=== PATIENT | male | born 1995 | race Two or more races ===

== ENCOUNTER 2017-05-21 13:54 | Inpatient (IN) | payer BC, MEDICAID ==
[~2017-05-21] VITALS: Ht 167.6 cm; Wt 63.5 kg
--- NOTE | 2017-05-21 14:00 | Emergency Room Report ---
History of Present Illness General Chief Complaint: Altered Mental Status Source: EMS Present Illness HPI 22-year-old male brought in by EMS with altered mental status. Per [employer],patient was lying on the sidewalk for about 20 minutes, casing mixer of started on patient was intoxicated. EMS administered a total of 8mg of Narcan, for decreased respiratory rate and pinpoint pupils, with marginal improvement, and a stating "pupils now dilated." Patient not providing history of present illness, is lying in stretcher shivering No contraband found on person no Other friends or family bedside Allergies: Coded Allergies: UNABLE TO ASSESS (Unverified , 05/21/17) Patient History Past Medical History: unable to obtain Past Surgical History: unable to obtain Pertinent Family History: unable to obtain Immunizations: UTD Reviewed Nursing Documentation: PMH: Agreed, PSxH: Agreed Review of Systems All Other Systems: limited - ams Physical Exam Vital Signs Date Time Temp Pulse Resp B/P (MAP) Pulse Ox O2 Delivery O2 Flow Rate FiO2 05/21/17 13:47 97.5 96 20 116/86 96 Room Air Sp02 EP Interpretation: reviewed, normal General Appearance: normal inspection, other - responds to verbal, pain, shivering in stretcher Head: normocephalic, atraumatic Eyes: bilateral eye PERRL, bilateral eye EOMI ENT: normal ENT inspection, normal pharynx, uvula midline, moist mucus membranes Neck: normal inspection, full range of motion, supple, thyroid normal, no meningismus, no bony tend Respiratory: normal inspection, lungs clear, normal breath sounds, no rhonchi, no respiratory distress, no retraction, no accessory muscle use, no wheezing, speaking full sentences Cardiovascular #1: regular rate, rhythm, no edema, no JVD, normal capillary refill Gastrointestinal: normal inspection, normal bowel sounds, non tender, soft, no mass, no peritonitis, non-distended, no guarding, no hernia, no pulsatile mass Genitourinary: no CVA tenderness Musculoskeletal: normal inspection, back normal, normal range of motion, no calf tenderness, pelvis stable, Vesna's Sign negative Neurologic: normal inspection, alert, responsive, plastic sheeting cutter III-XII nml as tested, motor strength/tone normal, cerebellar normal, normal gait Psychiatric: normal inspection, judgement/insight normal, mood/affect normal, no suicidal/homicidal ideation, no delusions Skin: normal inspection, normal color, no rash Lymphatic: normal inspection, no adenopathy Procedures Critical Care Time Critical Care Time CC time 35 minutes Critical care time endorsed for this patient for AMS likely from heroin overdose Critical care time includes review of laboratory tests, imaging, review of EMR, review of paperwork from SNF (if available), discussion with patient and family (if available), review of code status/POLS (if available). Critical care time also likely includes assessment of fluid status, stabilization of vital signs, re-dosing of narcan, possibly narcan drip, continual evaluation of airway status Critical care time does not include any procedures which are documented elsewhere in this EMR. Medical Decision Making Diagnostic Impression: Primary Impression: Altered mental status Qualified Codes: R41.82 - Altered mental status, unspecified Additional Impression: Polysubstance abuse ER Course RR 2-24 now Shivering Airway patent Questionable if heroin overdose - no needles found, ?not a great response to narcan 8mg, expected more awake Labs: Utox+ for cocaine, MJ, benzos CT head negative for acute process Sedation likely d/t benzos, MJ Endorsed tele admit PANEL Dr Siddiqi at 328pm Patient still protecting airway EKG Diagnostic Results Rate: normal Rhythm: NSR ST Segments: no acute changes Other Impression LVH ASA given to the pt in ED: No Rhythm Strip Diag. Results EP Interpretation: yes Rate: 83 Rhythm: NSR, no PVC's, no ectopy Last Vital Signs Date Time Temp Pulse Resp B/P (MAP) Pulse Ox O2 Delivery O2 Flow Rate FiO2 05/21/17 13:47 97.5 96 20 116/86 96 Room Air Status: improved Disposition: ADMITTED INPATIENT Condition: DESTINY Pacheco M.D. May 21, 2017 14:00
[2017-05-21 14:15] VITALS: BP 115/76
[2017-05-21 14:45] LABS: BASOPHILS % (AUTO) 0.9 % (0.0-2.0); EOSINOPHILS % (AUTO) 3.1 % (0.0-3.0); HEMATOCRIT 43.6 % (42.0-52.0); HEMOGLOBIN 14.1 G/DL (14.2-18.0); LYMPHOCYTES % (AUTO) 23.6 % (20.0-45.0); MEAN CORPUSCULAR VOLUME 89 FL (80-99); MONOCYTES % (AUTO) 6.1 % (1.0-10.0); NEUTROPHILS % (AUTO) 66.4 % (45.0-75.0); PLATELET COUNT 188 K/UL (150-450); RED BLOOD COUNT 4.92 M/UL (4.70-6.10); RED CELL DISTRIBUTION WIDTH 11.5 % (11.6-14.8); WHITE BLOOD COUNT 9.9 K/UL (4.8-10.8)
[2017-05-21 15:01] LABS: ANION GAP 7 mmol/L (5-15); BLOOD UREA NITROGEN 8 mg/dL (7-18); CARBON DIOXIDE 30 MMOL/L (21-32); CHLORIDE 106 MMOL/L (98-107); POTASSIUM 3.7 MMOL/L (3.5-5.1); SODIUM 143 MMOL/L (136-145)
[2017-05-21 15:15] LABS: ALANINE AMINOTRANSFERASE 29 U/L (12-78); ALBUMIN 4.1 G/DL (3.4-5.0); ALBUMIN/GLOBULIN RATIO 1.3 (1.0-2.7); ALKALINE PHOSPHATASE 54 U/L (46-116); ASPARTATE AMINO TRANSFERASE 28 U/L (15-37); BILIRUBIN,TOTAL 0.5 MG/DL (0.2-1.0); CKMB 3.3 NG/ML (0.0-3.6); CREATINE KINASE 424 U/L (26-308)
[2017-05-21 15:30] VITALS: BP 108/65
[2017-05-21] MEDS ORDERED: Naloxone 0.4mg/ml Inj IVP PRN (15:45)
[2017-05-21] MEDS ORDERED: Pantoprazole Inj IVP SCH (15:45)
[2017-05-21] MEDS ORDERED: Ammonia Inhalant 0.33mL 1 Amp INH ONE (15:45)
[2017-05-21] MEDS: D5NS 1,000 ML IV SCH (16:18)
[2017-05-21 19:46] VITALS: BP 110/68
[2017-05-21] MEDS ORDERED: Heparin 5000 units/ml inj SUBQ SCH (21:00)
[2017-05-22] VITALS: BP 108/64
[2017-05-22] MEDS: D5NS 1,000 ML IV SCH (02:54)
[2017-05-22 04:00] VITALS: BP 112/66
--- NOTE | 2017-05-22 09:40 | Diagnostic Imaging Report ---
Indication: Altered mental status Technique: Continuous helical CT scanning of the head was performed without intravenous contrast material. Axial and coronal 5 mm sections were generated. Radiation dose was minimized using automated exposure control Dose: Total Dose Length Product - DLP 1305.[address] Dose Index - CTDIvol(s) 70.38 mGy. Comparison: none Findings: The ventricular system is normal in size and configuration. There is no shift of midline structures. No abnormal extra-axial fluid collections are noted. There is no evidence of intracerebral bleeding. No other abnormal high or low density areas are noted within the brain. Impression: Normal CT scan of the head without contrast material. This agrees with the preliminary interpretation provided overnight by [facility]erad[facility] service. The CT scanner at [facility] is accredited by the [employer] and the scans are performed using protocols designed to limit radiation exposure to as low as reasonably achievable to attain images of sufficient resolution adequate for diagnostic evaluation. Noncontrast
--- NOTE | 2017-05-22 10:56 | Diagnostic Imaging Report ---
Indication: Chest pain Technique: One view of the chest Comparison: none Findings: Lungs and pleural spaces are clear. Heart size is normal Impression: No acute process
--- NOTE | 2017-05-23 18:29 | Cardiology Report ---
APPROVED REPORT EKG Measurement Heart [id number] Normal sinus rhythm Minimal voltage criteria for LVH, may be normal variant Borderline ECG
--- NOTE | 2017-05-25 12:32 | Discharge Summary ---
Discharge Summary Hospital Course Date of Admission May 21, 2017 at 15:50 Date of Discharge May 22, 2017 at 06:50 Admitting Diagnosis Altered Mental Status HPI Blaze Adams is a 22 year old male who was admitted on May 21, 2017 at 15:50 for Altered Mental Status Hospital Course dc summary #[id number] Discharge Discharge Disposition Patient signed AMA Discharge Diagnoses: Discharge Instructions Discharge Instructions Special Instructions I have been assigned to complete a D/C Summary on this account. I was not involved in the patient management Mojgan Licea NP (Vanchtein) May 25, 2017 12:32
--- NOTE | 2017-05-26 10:45 | Discharge Summary 2 SIG ---
DATE OF ADMISSION: 05/21/2017 DATE OF SIGNING AGAINST MEDICAL ADVICE: 05/22/2017. REASON FOR ADMISSION: 22-year-old male was brought by paramedics for altered mental status. Per [employer], the patient was lying on the sidewalk for 20 minutes, and it became apparent that the patient was intoxicated. Patient was unresponsive, with respiratory rate about 6 to 8. Ammonia inhalation x1 given. Supplemental oxygen provided. Patrol Conductor administered total of 8 mg of Narcan for decreased respiratory rate and pinpoint pupils with only marginal improvement. The patient was unable to provide any history. Vital signs were stable. The patient was able to respond to verbal stimuli and able to protect his airway. CT of the head revealed no acute intracranial pathology. Urine toxicology screen was positive for cocaine, marijuana, and benzodiazepine. Troponin was negative. CK - 424. The patient was given antiemetic. Serum alcohol level was high-138. According to the ED doctor, the patient likely had altered mental status secondary to heroin overdose because the patient showed only minimal improvement with Narcan of 8 mg. However, no needles were found on the scene. EKG revealed normal sinus rhythm, no acute ischemic changes, left ventricular hypertrophy. Chest x-ray revealed no acute cardiopulmonary pathology. The patient was admitted with diagnoses of altered mental status and polysubstance abuse. HOSPITAL COURSE: The patient was admitted to the telemetry floor. Telemetry demonstrated sinus rhythm. The patient was on the IV fluids. DVT and GI prophylaxes provided. Mental status was closely monitored. At the cost accounting manager, the patient stated that he wanted to sign against medical advice and need to leave. The risks and consequences of signing against medical advice were discussed with the patient. The patient verbalized understanding, signed the form and left. FINAL DIAGNOSES: 1. Altered mental status, likely due to toxic metabolic encephalopathy due to the drug abuse-resolving 2. Polysubstance abuse. Kapil Siddiqi M.D. I have been assigned to dictate discharge summary on this account and I was not involved in the patient's management. Mojgan Schumacheratlantic rehabilitation instituteMarisa Singh DR: [place] JOB#: [id number] CC: BOB
== END 2017-05-22 06:50 | disposition left against medical advice (07) | DRG 52 ==
LOC: EDBD 13:54 → EMR 14:16 → 2E 15:50 → EDBEDREQSVC 18:50 → EDBEDREQ 19:40 → 2E 21:12
DX: G92 Toxic encephalopathy (principal); F19.10 Other psychoactive substance abuse, uncomplicated
CPT/HCPCS: 36415; 36600; 51701; 70450; 71045; 80053; 80307; 80329; 82550; 82553; 82803; 84484; 85025; 93005; J2405